=== PATIENT | female | born 1950 ===

== ENCOUNTER 2018-01-19 11:15 | Emergency (ER) | payer MEDICAID, MEDICARE ==
[~2018-01-19] VITALS: Ht 161.3 cm; Wt 84.2 kg
[2018-01-19 12:07] VITALS: BP 143/99
[2018-01-19] MEDS ORDERED: AMLO5TAB2 PO (12:07)
[2018-01-19] MEDS ORDERED: TRAZ-137 PO (12:07)
[2018-01-19] MEDS ORDERED: ATOR-2 PO (12:07)
[2018-01-19] MEDS ORDERED: GABA600T2 PO (12:07)
[2018-01-19] MEDS ORDERED: FLUO40CA2 PO (12:07)
== END 2018-01-19 13:31 | disposition home or self-care (01) ==
LOC: ED 13:25
DX: I10 Essential (primary) hypertension (principal); M19.90 Unspecified osteoarthritis, unspecified site; F31.9 Bipolar disorder, unspecified
CPT/HCPCS: 82962; 99283